=== PATIENT | male | born 1960 | race Caucasian/White ===

== ENCOUNTER 2018-02-03 09:10 | Day surgery (SDC) | payer OTHER ==
[2018-02-03] MEDS ORDERED: FENTAnyl 50 MCG/ML VIAL (10:51)
[2018-02-03] MEDS ORDERED: MIDAZOLAM 1 MG/ML 2 ML INJ ×2 (10:51→10:52)
== END 2018-02-03 11:03 | disposition home or self-care (01) ==
LOC: GIL 09:10
DX: K20.9 Esophagitis, unspecified (principal); K25.9 Gastric ulcer, unspecified as acute or chronic, without hemorrhage or perforation
CPT/HCPCS: 43239; 88305; 88313